=== PATIENT | female | born 1990 | race Caucasian/White ===

== ENCOUNTER 2018-09-12 18:21 | Emergency (ER) | payer MEDICAID ==
[~2018-09-12] VITALS: Ht 154.9 cm; Wt 57.4 kg
[2018-09-12 18:43] VITALS: BP 143/67; PULSE 75; RESP 16; Ht 154.9 cm; Wt 57.4 kg
[2018-09-12] MEDS ORDERED: IBUP-1542 PO (20:50)
[2018-09-12] MEDS ORDERED: AMOX1TAB10 PO (20:50)
--- NOTE | 2018-09-12 20:55 | ERD ---
ER Documentation Chief Complaint Chief Complaint swollen lymph nodes/cysts behind L ear x3 days w/ LORENZO. no fever/ear pain HPI This is a 28-year-old female patient presents emergency room with complaint of swollen lymph nodes behind left ear x3 days. No fever, no ear pain, no throat pain, no nausea vomiting. No recent travel, no sick contacts, no chronic medical conditions. Patient alert and appropriate at time of assessment. Clear speech, NAD. ROS All systems reviewed and are negative except as per history of present illness. Medications Home Meds Active Scripts Amoxicillin/Potassium Clav (Amox-Clav 875-125 mg Tablet) 875-125 mg Tab, 1 TAB PO BID for 7 Days, #14 TAB Prov:ELISHA BLUNT NP 09/12/18 Ibuprofen* (Motrin*) 600 Mg Tab, 600 MG PO Q6, #30 TAB Prov:ELISHA BLUNT FISH INSPECTOR 09/12/18 Allergies Allergies: Coded Allergies: No Known Drug Allergies (Verified Allergy, Unknown, 09/12/18) PMhx/Soc Medical and Surgical Hx: pt denies Medical Hx Hx Alcohol Use: No Hx Substance Use: No Hx Tobacco Use: No Smoking Status: Never smoker FmHx Family History: No diabetes, No coronary disease, No other Physical Exam Vitals Vital Signs Date Temp Pulse Resp B/P (MAP) Pulse Ox O2 O2 Flow FiO2 Time Delivery Rate 09/12/18 98.1 75 16 143/67 100 18:43 (92) Physical Exam Const: No acute distress Head: Atraumatic Eyes: Normal Conjunctiva, PERRL ENT: Normal External Ears, TM clear BL, Nose without drainage, pharynx pink, no lesions, no petechiae, no exudate. 3 small pea-sized lumps along posterior cervical lymphatic chain, mobile, tender to touch, normothermic. Neck: Full range of motion. No meningismus. Lymphadenopathy or thyromegaly Resp: Clear to auscultation bilaterally Cardio: Regular rate and rhythm, no murmurs Abd: Soft, non tender, non distended. Normal bowel sounds, no hepatosplenomegaly Skin: No petechiae or rashes Back: No midline or flank tenderness Ext: No cyanosis, or edema Neur: Awake and alert Psych: Normal Mood and Affect Procedures/MDM This is a 28-year-old female patient presents emergency room with complaint of swollen lymph nodes behind left ear x3 days. Patient is without headache at time of assessment. ED COURSE: The patient was stable throughout ED course. I kept the patient and/or family informed of laboratory and diagnostic imaging results throughout the ED course. DIAGNOSTIC IMAGING: None indicated at this time PROCEDURES: None. MEDICATIONS GIVEN: None indicated MDM: This patients soft tissue infection appears to be appropriate for outpatient treatment with close follow-up for reevaluation by a clinician within 24-48 hours. A serious, rapidly progressive infectious process is unlikely based upon the patients presentation and appearance of the infection. Antibiotic treatment has been initiated here and response to treatment will be based on reassessment at close follow-up. The patient has been instructed on signs and symptoms of acute progression of infection and to return immediately if any of these occur. Patient encouraged to establish care with primary care physician for future care needs as well as for reassessment of lymph nodes and potential for necessity for specialty referral. History and physical exam and plan of care discussion performed via hourly associate services DISPOSITION: The patient has been discharge home to follow-up with community physician. Departure Diagnosis: Primary Impression: Lymph nodes enlarged Condition: Stable Patient Instructions: When Your Child Has Swollen Lymph Nodes Referrals: [facility] YOU HAVE RECEIVED A MEDICAL SCREENING EXAM AND THE RESULTS INDICATE THAT YOU DO NOT HAVE A CONDITION THAT REQUIRES URGENT TREATMENT IN THE EMERGENCY DEPARTMENT. FURTHER EVALUATION AND TREATMENT OF YOUR CONDITION CAN WAIT UNTIL YOU ARE SEEN IN YOUR DOCTORS OFFICE WITHIN THE NEXT 1-2 DAYS. IT IS YOUR RESPONSIBILITY TO MAKE AN APPOINTMENT FOR FOLOW-UP CARE. IF YOU HAVE A PRIMARY DOCTOR --you should call your primary doctor and schedule an appointment IF YOU DO NOT HAVE A PRIMARY DOCTOR YOU CAN CALL OUR PHYSICIAN REFERRAL HOTLINE AT IF YOU CAN NOT AFFORD TO SEE A PHYSICIAN YOU CAN CHOSE FROM THE FOLLOWING [facility] [id number] [facility]. [facility] [address] [facility] [facility] [address] [facility] [facility] [address] [facility]. [facility] [address] [facility]. [facility]. [address] Additional Instructions: Thank you very much for allowing us to participate in your care. Your health and safety is our top priority at [facility]. Call your primary care doctor TOMORROW for an appointment during the next 2-4 days and bring all the information and medications prescribed. Have prescriptions filled and follow precisely the directions on the label. If the symptoms get worse and your provider is unavailable, return to the Emergency Department immediately. APPLY MOIST HEAT 20-30 MIN, 2-3X PER DAY COMPLETE ENTIRE COURSE OF ANTIBIOTICS RETURN TO ED WITH WORSENING OF SIZE OR PAIN OR WITH FEVER ESTABLISH CARE WITH PRIMARY CARE PHYSICIAN ELISHA BLUNT NP September 12, 2018 20:55
== END 2018-09-12 21:28 | disposition home or self-care (01) ==
LOC: FTE 18:21
DX: R59.0 Localized enlarged lymph nodes (principal)
CPT/HCPCS: 99283